=== PATIENT | female | born 1960 | race African-American/Black ===

== ENCOUNTER 2016-07-09 09:43 | Observation (INO) | payer MEDICARE ==
[~2016-07-09] VITALS: Ht 165.1 cm; Wt 107.0 kg
[2016-07-09] MEDS ORDERED: ASPIRIN 81MG TABLET PO ONE (12:30)
[2016-07-09 12:33] LABS: BASOPHILS % 0.5 % (0.0-2.0); EOSINOPHILS % 1.4 % (0.0-5.0); HEMATOCRIT. 34.7 % (36.0-48.0); HEMOGLOBIN. 11.6 g/dL (12.0-16.0); LYMPHOCYTES % 52.6 % (20.0-50.0); MEAN CORPUSCULAR HEMOGLOBIN 30.8 pg (28.0-32.0); MEAN CORPUSCULAR HGB CONC 33.5 g/dL (31.0-37.0); MEAN PLATELET VOLUME 7.5 fl (7.4-10.4); MONOCYTES % 7.1 % (2.0-8.0); NEUTROPHILS % 38.4 % (40.0-76.0); PLATELET 229 x1000/uL (130-400); RED BLOOD CELL COUNT 3.78 mill/uL (4.2-5.4); RED CELL DISTRIBUTION WIDTH 13.4 % (11.6-14.6); WHITE BLOOD COUNT 6.2 x1000/uL (4.5-11.0)
[2016-07-09 12:41] LABS: INR 1.1
[2016-07-09 12:48] LABS: ALBUMIN 3.4 g/dL (3.4-5.0); ANION GAP 11; CALCIUM 8.5 mg/dL (8.5-10.1); CARBON DIOXIDE 23 mEq/L (21-32); CHLORIDE 113 mEq/L (98-107); ETHANOL BLOOD < 10 mg/dL; INDEX HEMOLYSI 1 (1-3); INDEX ICTERIC 1 (1-4); INDEX LIPEMIC 1 (1-3); UREA NITROGEN BLOOD 12 mg/dL (7-21); eGFR > 60 mL/min (>60)
[2016-07-09 12:50] LABS: NT PRO B-TYPE NATRIURETIC PEP 674 pg/mL (5-125); TROPONIN I < 0.02 ng/mL (0.00-0.04)
[2016-07-09 13:01] LABS: ALANINE AMINOTRANSFERASE 15 IU/L (13-61)
[2016-07-09 13:16] LABS: *AMPHETAMINES SCREEN URINE NEGATIVE (NEGATIVE); *BARBITURATES SCREEN URINE NEGATIVE (NEGATIVE); *BENZODIAZEPINES SCREEN URINE PRESUMTIVE POSITIVE (NEGATIVE); *COCAINE SCREEN URINE NEGATIVE (NEGATIVE); CANNABINOID URINE SCREEN NEGATIVE (NEGATIVE); ECSTASY MDMA SCREEN URINE NEGATIVE (NEGATIVE); METHADONE URINE SCREEN NEGATIVE (NEGATIVE); OPIATES URINE SCREEN NEGATIVE (NEGATIVE); PHENCYCLIDINE URINE SCREEN NEGATIVE (NEGATIVE)
[2016-07-09] MEDS ORDERED: ACETAMINOPHEN 325MG TABLET PO PRN (16:30)
[2016-07-09] MEDS ORDERED: ONDANSETRON HCL 4MG/2ML VIAL IV PRN (16:30)
[2016-07-09] MEDS ORDERED: CLONIDINE 0.1MG TABLET PO PRN (16:30)
[2016-07-09] MEDS ORDERED: DOCUSATE SODIUM 100MG CAPSULE PO PRN (16:30)
[2016-07-09] MEDS ORDERED: MAGNESIUM/ALUMINUM HYDROXIDE/SIMETHICONE 30ML UDC PO PRN (16:30)
[2016-07-09 18:10] VITALS: BP 132/70
[2016-07-09] MEDS ORDERED: CARV6.2548 PO (18:40)
[2016-07-09] MEDS ORDERED: ASPI-1035 PO (18:40)
[2016-07-09] MEDS ORDERED: DIAZ10TA4 PO (18:40)
[2016-07-09] MEDS ORDERED: TOPI-60 PO (18:40)
[2016-07-09] MEDS ORDERED: LISI10TA5 PO (18:40)
[2016-07-09] MEDS ORDERED: TRAM50TA3 PO (18:40)
[2016-07-09 20:00] VITALS: BP 123/78
[2016-07-09] MEDS ORDERED: PNEUMOCOCCAL 23-VAL P-SAC VAC 0.5 ML IM ONE (20:00)
[2016-07-09] MEDS: METOPROLOL TARTRATE 25MG TABLET PO SCH (20:42)
[2016-07-09 23:27] LABS: CREATINE KINASE 184 IU/L (26-192); CREATINE KINASE MB FRACTION 0.6 ng/mL (0.5-3.6); INDEX HEMOLYSI 1 (1-3)
[2016-07-09 23:42] LABS: TROPONIN I < 0.02 ng/mL (0.00-0.04)
[2016-07-10] VITALS: BP 130/75
[2016-07-10 04:30] VITALS: BP 125/77
[2016-07-10 06:57] LABS: BASOPHILS % 0.4 % (0.0-2.0); EOSINOPHILS % 1.7 % (0.0-5.0); HEMATOCRIT. 34.5 % (36.0-48.0); HEMOGLOBIN. 11.6 g/dL (12.0-16.0); LYMPHOCYTES % 51.3 % (20.0-50.0); MEAN CORPUSCULAR HEMOGLOBIN 30.9 pg (28.0-32.0); MEAN CORPUSCULAR HGB CONC 33.5 g/dL (31.0-37.0); MEAN CORPUSCULAR VOLUME 92.2 fL (81.0-99.0); MEAN PLATELET VOLUME 8.3 fl (7.4-10.4); MONOCYTES % 7.8 % (2.0-8.0); NEUTROPHILS % 38.8 % (40.0-76.0); PLATELET 231 x1000/uL (130-400); RED BLOOD CELL COUNT 3.74 mill/uL (4.2-5.4); RED CELL DISTRIBUTION WIDTH 13.4 % (11.6-14.6)
[2016-07-10 07:03] LABS: ALANINE AMINOTRANSFERASE 17 IU/L (13-61); ALBUMIN 3.1 g/dL (3.4-5.0); ANION GAP 12; CALCIUM 7.6 mg/dL (8.5-10.1); CARBON DIOXIDE 22 mEq/L (21-32); CHLORIDE 112 mEq/L (98-107); CREATINE KINASE 165 IU/L (26-192); HDL CHOLESTEROL 55 mg/dL (40-59); INDEX HEMOLYSI 1 (1-3); INDEX ICTERIC 1 (1-4); INDEX LIPEMIC 1 (1-3); LDL CHOLESTEROL 97 mg/dL (5-100); TRIGLYCERIDE 132 mg/dL (0-150); UREA NITROGEN BLOOD 16 mg/dL (7-21); eGFR > 60 mL/min (>60)
[2016-07-10 07:04] LABS: CREATINE KINASE MB FRACTION < 0.5 ng/mL (0.5-3.6); TROPONIN I < 0.02 ng/mL (0.00-0.04)
[2016-07-10 08:00] VITALS: BP 104/82
[2016-07-10] MEDS: METOPROLOL TARTRATE 25MG TABLET PO SCH (09:00)
[2016-07-10] MEDS ORDERED: ENOXAPARIN 40MG/0.4ML SYR SUBCUT SCH (09:00)
[2016-07-10] MEDS: ASPIRIN 81MG EC TABLET PO SCH (09:43)
[2016-07-10] MEDS: HYDROCODONE/ACETAMINOPHEN 5/325MG TABLET PO PRN ×3 (09:49→19:57)
[2016-07-10 12:00] VITALS: BP 115/65
[2016-07-10] MEDS ORDERED: REGADENOSON 0.4 MG/5 ML IV NR (14:00)
[2016-07-10] MEDS: CARVEDILOL 3.125 MG TABLET PO SCH ×2 (14:00→19:57)
[2016-07-10 16:00] VITALS: BP 105/66
[2016-07-10] MEDS: ENOXAPARIN 30MG/0.3ML SYR SUBCUT SCH (19:58)
[2016-07-10 20:00] VITALS: BP 101/60
[2016-07-11] VITALS (7 sets, daily range): BP systolic 104–123; BP diastolic 52–79
[2016-07-11] MEDS: HYDROCODONE/ACETAMINOPHEN 5/325MG TABLET PO PRN ×3 (04:31→19:02)
[2016-07-11 06:20] LABS: BASOPHILS % 0.4 % (0.0-2.0); EOSINOPHILS % 1.2 % (0.0-5.0); HEMATOCRIT. 36.2 % (36.0-48.0); LYMPHOCYTES % 64.5 % (20.0-50.0); MEAN CORPUSCULAR HEMOGLOBIN 30.6 pg (28.0-32.0); MEAN CORPUSCULAR HGB CONC 33.3 g/dL (31.0-37.0); MEAN CORPUSCULAR VOLUME 92.1 fL (81.0-99.0); MEAN PLATELET VOLUME 8.4 fl (7.4-10.4); MONOCYTES % 7.3 % (2.0-8.0); NEUTROPHILS % 26.6 % (40.0-76.0); PLATELET 234 x1000/uL (130-400); RED BLOOD CELL COUNT 3.93 mill/uL (4.2-5.4); RED CELL DISTRIBUTION WIDTH 13.3 % (11.6-14.6); WHITE BLOOD COUNT 5.7 x1000/uL (4.5-11.0)
[2016-07-11 06:52] LABS: ANION GAP 9; CALCIUM 8.5 mg/dL (8.5-10.1); CARBON DIOXIDE 27 mEq/L (21-32); CHLORIDE 109 mEq/L (98-107); INDEX HEMOLYSI 1 (1-3); INDEX ICTERIC 1 (1-4); INDEX LIPEMIC 1 (1-3); MAGNESIUM 2.2 mg/dL (1.8-2.4); UREA NITROGEN BLOOD 18 mg/dL (7-21); eGFR > 60 mL/min (>60)
[2016-07-11 07:01] LABS: TROPONIN I < 0.02 ng/mL (0.00-0.04)
[2016-07-11] MEDS: CARVEDILOL 3.125 MG TABLET PO SCH ×2 (09:25→20:57)
[2016-07-11] MEDS: ASPIRIN 81MG EC TABLET PO SCH (09:25)
[2016-07-11] MEDS: ENOXAPARIN 30MG/0.3ML SYR SUBCUT SCH ×2 (09:26→20:57)
[2016-07-11] MEDS ORDERED: REGADENOSON 0.4 MG/5 ML IV ONE (13:25)
[2016-07-12] VITALS: BP 100/65
[2016-07-12 04:00] VITALS: BP 112/59
[2016-07-12] MEDS: HYDROCODONE/ACETAMINOPHEN 5/325MG TABLET PO PRN ×2 (04:01→12:39)
[2016-07-12 08:00] VITALS: BP 95/71
[2016-07-12] MEDS: ASPIRIN 81MG EC TABLET PO SCH (08:28)
[2016-07-12] MEDS: ENOXAPARIN 30MG/0.3ML SYR SUBCUT SCH (08:28)
[2016-07-12] MEDS: CARVEDILOL 3.125 MG TABLET PO SCH (09:00)
[2016-07-12 12:00] VITALS: BP 129/76
[2016-07-12 12:23] VITALS: BP 129/76
[2016-07-12 12:39] VITALS: BP 129/76
== END 2016-07-12 15:00 | disposition home or self-care (01) ==
LOC: ER 12:26 → 7WST 12:27 → INTOOBSV 12:27
PROVIDERS: ADMIT Internal Medicine; ATTEND Internal Medicine
DX: R07.89 Other chest pain (principal); D64.9 Anemia, unspecified; F41.9 Anxiety disorder, unspecified; I25.10 Atherosclerotic heart disease of native coronary artery without angina pectoris; I10 Essential (primary) hypertension; I25.2 Old myocardial infarction; E78.00 Pure hypercholesterolemia, unspecified; E83.51 Hypocalcemia; F32.9 Major depressive disorder, single episode, unspecified; F17.210 Nicotine dependence, cigarettes, uncomplicated; R00.1 Bradycardia, unspecified; Z82.49 Family history of ischemic heart disease and other diseases of the circulatory system; Z95.1 Presence of aortocoronary bypass graft
CPT/HCPCS: 36415; 71010; 78452; 80048; 80053; 80061; 80305; 82550; 82553; 83735; 83880; 84443; 84484; 85025; 85379; 85610; 93005; 93017; 93306; 93970; 96372; 99285; A9500; G0378; G0482; J1650; J2785; 90732